=== PATIENT | female | born 1990 | race Two or more races ===

== ENCOUNTER 2025-09-20 19:01 | Emergency (ER) | payer OTHER ==
[~2025-09-20] VITALS: Ht 162.6 cm; Wt 79.9 kg
--- NOTE | 2025-09-20 20:15 | ED.PDOC ---
Musculoskeletal HPI Comments This is a 35 year-old female who presents to the ED with a chief complaint of L wrist pain S/P slip and fall today. Patient presents with visual L wrist deformity. Patient has no further complaints or modifying factors at this time. Patient otherwise denies symptoms of head trauma, dizziness, LOC, fatigue, or weakness. Chief Complaint: Upper Extremity Time Seen by MD: 19:55 Reviewed Notes: Medications, Allergies Allergies: Coded Allergies: NO KNOWN ALLERGIES (Unverified , 09/20/25) Home Meds Active Scripts Oxycodone W/ Acetaminophen (Percocet 5/325MG) 1 Tab Tb, 2 TAB PO QID PRN, #20 TAB Prov:ROSEANN POLLARD 09/20/25 Naproxen (NAPROSYN TABLET) 500 Mg Tb, 1 TAB PO BID PRN, #20 TAB 1 Refill Prov:ROSEANN POLLARD 09/20/25 Information Source: Patient Mode of Arrival: Ambulatory Location: Left Extremity Location: Wrist Timing: Hours Prehospital treatment: None Severity: Moderate Circumstances: Fall Onset of Symptoms: After Trauma Symptoms: Swelling, Pain DVT Risk Factors: NONE Associated signs and symptoms: Wrist pain Past Medical History PAST MEDICAL HISTORY: Denies Surgical History: Denies all surgeries 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 Family History Family History: Reviewed,noncontributory to illness, No family hx of Cancer, No family hx of DM, No family hx of Heart drew, No family hx of HTN, No family hx ofKidney drew, No family hx of Liver drew, No family hx of Lung drew, No family hx of Stroke Social History Smoker: Non-Smoker Alcohol: Denies ETOH Use Drugs: Denies Drug Use Lives In: Home Constitutional: denies: chills, diaphoresis, fatigue, fever, malaise, sweats, weakness, others EENTM: denies: blurred vision, double vision, ear bleeding, ear discharge, ear drainage, ear pain, ear ringing, eye pain, eye redness, hearing loss, mouth pain, mouth swelling, nasal discharge, nose bleeding, nose congestion, nose pain, photophobia, tearing, throat pain, throat swelling, voice changes, others Respiratory: denies: cough, hemoptysis, orthopnea, SOB at rest, shortness of breath, SOB with excertion, stridor, wheezing, others Cardiovascular: denies: chest pain, dizzy spells, diaphoresis, Dyspnea on exertion, edema, irregular heart beat, left arm pain, lightheadedness, palpitations, PND, syncope, others Gastrointestinal: denies: abdomen distended, abdominal pain, blood streaked bowels, constipated, diarrhea, dysphagia, difficulty swallowing, hematemesis, melena, nausea, poor appetite, poor fluid intake, rectal bleeding, rectal pain, vomiting, others Genitourinary: denies: abnormal vagina bleeding, burning, dyspareunia, dysuria, flank pain, frequency, hematuria, incontinence, pain, , vagina discharge, urgency, others Neurological: denies: dizziness, fainting, headache, left sided numbness, left sided weakness, numbness, paresthesia, pre-existing deficit, right sided numbness, right sided weakness, seizure, speech problems, tingling, tremors, weakness, others Musculoskeletal: reports: joint pain, joint swelling; denies: back pain, gout, muscle pain, muscle stiffness, neck pain, others Integumetry: denies: bruises, change in color, change in hair/nails, dryness, laceration, lesions, lumps, rash, wounds, others Allergic/Immunocompromised: denies: Difficulty Healing, Frequent Infections, Hives, Itching, others Hematologic/Lymphatic: denies: anemia, blood clots, easy bleeding, easy bruising, swollen glands, others Endocrine: denies: excessive hunger, excessive sweating, excessive thirst, excessive urination, flushing, intolerance to cold, intolerance to heat, unexplained weight gain, unexplained weight loss, others Psychiatric: denies: anxiety, bipolar disorder, depression, hopeless, panic disorder, schizophrenia, sleepless, suicidal, others All Other Systems: Reviewed and Negative Was a procedure done? Was a procedure done?: Yes Sedation Sedation?: No Other Procedure Procedure Distal Radial Reduction Anesthetic Hematoma Block Prep Lidocaine Success XRAY confirmed Improved alignment of distal radial metaphyseal fracture Informed consent obtained: Yes Risks, benefits, and alternati: Yes Differential Diagnosis EXT Differential Diagnosis: Fracture, Sprain, Dislocation X-Ray, Labs, Meds, VS Vital Signs Date Time Temp Pulse Resp B/P (MAP) Pulse Ox O2 Delivery O2 Flow Rate FiO2 09/20/25 20:32 97.3 112 18 146/95 (112) 93 97.3 09/20/25 20:32 112 18 93 09/20/25 19:02 97.5 105 16 132/85 99 97.5 Current Medications Medications (Trade) Dose Ordered Sig/Don Route Start Time Stop Time Status Last Admin Ibuprofen (Motrin Tablet) 800 mg ONCE ONCE PO 09/20/25 20:00 09/20/25 20:01 DC 09/20/25 20:30 Oxycodone/ Acetaminophen (Percocet 5/ 325MG Tablet) 2 tab ONCE ONCE PO 09/20/25 20:00 09/20/25 20:01 DC 09/20/25 20:29 Oxycodone HCl (OxyCONTIN ER Tablet) 10 mg ONCE ONCE PO 09/20/25 23:30 09/20/25 23:32 DC 09/20/25 23:41 [place] [id number] Ph: [phone] DIAGNOSTIC IMAGING Diagnostic Imaging Report : [id number] Signed PATIENT: RADHA VENCES ACCT: [id number] UNIT: [id number] : 1990 LOC: ER ROOM / BED: / AGE / SEX: 35 / F ADM STATUS: REG ER SERVICE 50 ORDERING PHYSICIAN: ROSEANN POLLARD PROCEDURE(s): LWRI - L WRIST 3+ VIEW XRAY REASON: ground level fall deformity left wrist forearm ORDER NUMBER(s): [id number], ACCESSION NUMBER(s): [id number] CLINICAL INDICATION: ground level fall deformity left wrist forearm TECHNIQUE: XY L WRIST 3+ VIEW XRAY Comparison: None FINDINGS/IMPRESSION: : There is an acute displaced and dorsally angulated fracture of the distal radial metaphysis. Soft tissue swelling surrounding the wrist. [address] [address] Ph: [phone] DIAGNOSTIC IMAGING Diagnostic Imaging Report : [id number] Signed PATIENT: RADHA VENCES ACCT: [id number] UNIT: [id number] : 1990 LOC: ER ROOM / BED: / AGE / SEX: 35 / F ADM STATUS: REG ER SERVICE 50 ORDERING PHYSICIAN: ROSEANN POLLARD PROCEDURE(s): LFOR - L FOREARM XRAY REASON: ground level fall with left wrist and forearm deformity ORDER NUMBER(s): [id number], ACCESSION NUMBER(s): [id number] CLINICAL INDICATION: ground level fall with left wrist and forearm deformity TECHNIQUE: XY L FOREARM XRAY Comparison: None FINDINGS/IMPRESSION: : Acute comminuted displaced and dorsally angulated fracture of the distal radial metaphysis. Soft tissue swelling surrounding the wrist. [place] [id number] Ph: [phone] DIAGNOSTIC IMAGING Diagnostic Imaging Report : [id number] Signed PATIENT: RADHA VENCES ACCT: [id number] UNIT: [id number] : 1990 LOC: ER ROOM / BED: / AGE / SEX: 35 / F ADM STATUS: REG ER SERVICE 57 ORDERING PHYSICIAN: ROSEANN POLLARD PROCEDURE(s): LWRI2 - L WRIST 2 VIEW XRAY REASON: post reduction ORDER NUMBER(s): [id number], ACCESSION NUMBER(s): [id number] CLINICAL INDICATION: post reduction TECHNIQUE: XY L WRIST 2 VIEW XRAY Comparison: XY L WRIST 3+ VIEW XRAY on DOS: 09/20/25 FINDINGS/IMPRESSION: : Improved alignment of distal radial metaphyseal fracture status post reduction ; however, there is persistent dorsal angulation. Soft tissue swelling surrounding the wrist. Time of 1ST Reevaluation: 20:35 Reevaluation 1ST: Unchanged Patient Education/Counseling: Diagnosis, Treatment Family Education/Counseling: Diagnosis, Treatment Departure 1 Departure Time of Disposition: 22:18 Impression: Primary Impression: Fracture of left distal radius Disposition: 01 HOME / SELF CARE / HOMELESS Condition: Stable e-Prescriptions Oxycodone W/ Acetaminophen (Percocet 5/325MG) 1 Tab Tb 2 TAB PO QID PRN, #20 TAB Prov: ROSEANN POLLARD 09/20/25 Naproxen (NAPROSYN TABLET) 500 Mg Tb 1 TAB PO BID PRN, #20 TAB 1 Refill Prov: ROSEANN POLLARD GAIL 09/20/25 Discharged With: Self, Relative Critical Care Note Critical Care Time?: No Stability Stability form required: No Heart Score Heart Score: Heart Score Response (Comments) Value History N/A 0 EKG N/A 0 Age N/A 0 Risk Factors N/A 0 Troponin N/A 0 Total 0 I personally scribed for ER (EMERGENCY) on 09/20/25 at 20:14. Electronically submitted by [facility] ([email or web address]). I personally scribed for ER (EMERGENCY) on 09/20/25 at 20:19. Electronically submitted by [facility] ([email or web address]). I personally scribed for ER (EMERGENCY) on 09/20/25 at 20:36. Electronically submitted by [facility] ([email or web address]). I personally scribed for ER (EMERGENCY) on 09/20/25 at 21:19. Electronically submitted by [facility] ([email or web address]). I personally scribed for ER (EMERGENCY) on 09/20/25 at 21:20. Electronically submitted by [facility] ([email or web address]). I personally scribed for ER (EMERGENCY) on 09/20/25 at 22:02. Electronically submitted by [facility] (KRIS). I personally scribed for ER (EMERGENCY) on 09/20/25 at 22:09. Electronically submitted by [facility] (KRIS). I personally scribed for ER (EMERGENCY) on 09/20/25 at 22:18. Electronically submitted by [facility] (KRIS). I personally scribed for ER (EMERGENCY) on 09/20/25 at 23:53. Electronically submitted by [facility] (KRIS). ER Sep 20, 2025 20:14
[2025-09-20] MEDS: OXYCODONE W/ ACETAMINOPHEN 5/325MG TABLET PO ONE (20:29)
[2025-09-20] MEDS: IBUPROFEN 800 MG TAB PO ONE (20:30)
[2025-09-20 20:32] VITALS: BP 146/95; PULSE 112; RESP 18; TEMP 97.3; O2SAT 93
--- NOTE | 2025-09-20 21:01 | DVH ---
CLINICAL INDICATION: ground level fall deformity left wrist forearm TECHNIQUE: XY L WRIST 3+ VIEW XRAY Comparison: None FINDINGS/IMPRESSION: : There is an acute displaced and dorsally angulated fracture of the distal radial metaphysis. Soft tissue swelling surrounding the wrist.
--- NOTE | 2025-09-20 21:05 | DVH ---
CLINICAL INDICATION: ground level fall with left wrist and forearm deformity TECHNIQUE: XY L FOREARM XRAY Comparison: None FINDINGS/IMPRESSION: : Acute comminuted displaced and dorsally angulated fracture of the distal radial metaphysis. Soft tissue swelling surrounding the wrist.
[2025-09-20] MEDS: LIDOCAINE 1% HCL (LOCAL ANESTH.) INJ 20ML MDV ONE (21:59)
[2025-09-20] MEDS ORDERED: NAP500T PO (23:32)
[2025-09-20] MEDS ORDERED: PERCOT PO (23:32)
--- NOTE | 2025-09-20 23:33 | DVH ---
CLINICAL INDICATION: post reduction TECHNIQUE: XY L WRIST 2 VIEW XRAY Comparison: XY L WRIST 3+ VIEW XRAY on DOS: 09/20/25 FINDINGS/IMPRESSION: : Improved alignment of distal radial metaphyseal fracture status post reduction ; however, there is persistent dorsal angulation. Soft tissue swelling surrounding the wrist.
== END 2025-09-21 00:06 | disposition home or self-care (01) ==
LOC: ER 19:01
DX: S52.592A Other fractures of lower end of left radius, initial encounter for closed fracture (principal); W18.30XA Fall on same level, unspecified, initial encounter; Y93.89 Activity, other specified; Y92.89 Other specified places as the place of occurrence of the external cause; Y99.8 Other external cause status
CPT/HCPCS: 25605; 73090; 73100; 73110; 99284; J2003